=== PATIENT | female | born 1995 ===

== ENCOUNTER 2018-05-24 00:50 | Inpatient (IN) | payer OTHER ==
[2018-05-24] MEDS ORDERED: MAG HYDROX/AL HYDROX/SIMETH 30 ML UDCUP PO PRN (01:12)
[2018-05-24] MEDS ORDERED: MAGNESIUM HYDROXIDE 30 ML UDCUP PO PRN (01:12)
[2018-05-24] MEDS: OLANZapine 5 MG TAB PO PRN ×2 (04:21→14:39)
--- NOTE | 2018-05-24 09:24 | ASMTBHMTP ---
MYRNA Master Treatment Plan Master Treatment Plan Answers: Impaired Reality for: Date: 05/24/2018 Diagnosis on Admission: Psychosis Reason for admission: Notes: Patient admitted with disorganzed thought ah/vh and tactile hallucinations off psychiatric meds m1 hold Patient's stated presenting problems: Notes: Patient presents to staff as disorganized, responding to internal stimuli. Refused to discuss and sign treatment plan Identify supports outside of hospital: Notes: Patient has [facility] providers Discharge criteria: Notes: Patient will stabilize sx's and able to manage aspects of daily living without threat or harm to self, or grave disability Initial disposition plan/considerations: Notes: Will assist with d/c plan to community and f/u with [facility] care Master Treatment Plan Required Signatures Psychiatrist signature: Answers: Psychiatrist: RN on-shift signature: Answers: RN: Patient signature: Answers: Patient: Date Signed: 05/24/2018 09:23 AM Electronically Signed By:Annel Coreas
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
--- NOTE | 2018-05-24 15:13 | PDMN ---
Medical Necessity Medical necessity: Pt meets inpt criteria per MD order and [facility] B-011, Other Psychotic Disorders, Adult: Inpatient Care. 22 y/o admitted on M1 Hold w/ psychotic disorder, unspecified, manic w/psychosis w/atypical features requiring inpt psychiatric hospitalization.
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
[2018-05-24] MEDS: LORazepam 0.5 MG TAB PO PRN (17:01)
[2018-05-25] MEDS: OLANZapine 5 MG TAB PO PRN ×3 (13:33→21:23)
--- NOTE | 2018-05-25 14:53 | ASMTCMCOM ---
CM Note CM Note Notes: Pt. reports feeling "anxiety". Pt. stated she doesn't remember how she slept because she was sleeping. Pt. stated she doesn't feel groggy and believes she is getting enough sleep. Pt. stated she is unsure when she will discharge, but stated she will return to living with her mother in mother's house. Pt. denied SI, HI, AVH and paranoia. Pt. stated she "banged my leg to distract" when CC asked about self harm. Pt. stated "don't think so" when asked about any hallucinations, adding she "know what that's like". Pt. stated she is "pretty blind right now" adding she can't see with out her contacts/glasses. Pt. presents as alert, very guarded, covering her mouth with a washcloth because of "airborne pathogens", friendly, good eye contact, and giggling at times. Staff report pt. sleeping 11 hours, disrobing at times and needing to be redirected, disorganized, disoriented, and suspicious. Date Signed: 05/25/2018 02:52 PM Electronically Signed By:Irene Jason
--- NOTE | 2018-05-25 16:27 | SOAPPROG ---
SOAP Progress Note Assessment/Plan: Assessment: 22 yo w/ recurrent psychosis, has been diagnosed with Bipolar DO in past, but does not present with johny this time. She reports recurrence of psychotic sxs after using THC on . Plan: 05/25/18 16:23 1. Patient still very paranoid today. Took Zyprexa 10mg PRN this afternoon and seemed less fearful. 2. Dr. Parish's initial psych assessment mentions possibility that AMS might be d/t delirium. It's possible patient's psychotic sxs might resolve once THC has been metabolized. Will continue with PRN meds if necessary and monitor for sxs resolution. 3. [facility] Subjective: Patient presents as extremely paranoid. MD meets with patient with CC, Irene present. Patient is wearing a T-shirt, shorts and holding wash cloth over her mouth and nose. When CC asks why, patient says it's to protect her against "airborne pathogens." In dining room this AM, she didn't want any plastic forks or spoons to touch her tray. This afternoon, she took 10mg Zyprexa at MD's suggestion and appeared much calmer and less agitated after. Objective: Vital Signs Temp Pulse Resp BP Pulse Ox 37.4 C 83 14 114/63 97 05/25/18 14:00 05/25/18 14:00 05/25/18 14:00 05/25/18 14:00 05/25/18 14:00 MSE: Affect: Anxious, agitated Mood: "OK" TP: Disorganized, illogical TC: Denies SI/HI, very paranoid Insight/Judgment: Impaired - Time Spent With Patient Time Spent With Patient: 15" - Pending Discharge Pending Discharge Within 24 Hours: No Pending Discharge Within 48 Hours: No ICD10 Worksheet Patient Problems: Problems Problem Status Onset Cannabis use disorder, severe, dependence Acute Psychosis Acute - ICD10 Problem Qualifiers (1) Psychosis Qualifiers: Psychosis type: unspecified psychosis type Qualified Code(s): F29 - Unspecified psychosis not due to a substance or known physiological condition (2) Cannabis use disorder, severe, dependence
[2018-05-25] MEDS: LORazepam 0.5 MG TAB PO PRN (17:37)
--- NOTE | 2018-05-26 16:37 | SOAPPROG ---
SOAP Progress Note Assessment/Plan: Assessment: 22 yo w/ recurrent psychosis, has been diagnosed with Bipolar DO in past, but does not present with johny this time. She reports recurrence of psychotic sxs after using THC on . Plan: 05/25/18 16:23 1. Patient still very paranoid today. Took Zyprexa 10mg PRN this afternoon and seemed less fearful. 2. Dr. Parish's initial psych assessment mentions possibility that AMS might be d/t delirium. It's possible patient's psychotic sxs might resolve once THC has been metabolized. Will continue with PRN meds if necessary and monitor for sxs resolution. 3. [facility] 05/26/18 16:32 1. Patient slightly less paranoid today. Not wearing wash cloth over her mouth to protect from "pathogens." 2. Patient ate more today (> 75%). 3. Patient has little insight into her situation. She does not agree to stay in hospital voluntarily. Will place on ST. Subjective: Patient still has odd behavior and bizarre thoughts. She remains paranoid about contact with peers, "pathogens" on unit, and plastic forks and knives. She isolates in room most of the day. RN found patient crouching under her desk but could not explain why. She ate better today, and in afternoon, she stopped holding wash cloth over her nose/mouth. She seemed slightly less paranoid. Objective: Vital Signs Temp Pulse Resp BP Pulse Ox 37.1 C 88 16 123/74 H 97 05/26/18 13:00 05/26/18 13:00 05/26/18 13:00 05/26/18 13:00 05/26/18 13:00 MSE: Affect: Anxious Mood: "OK" TP: Disorganized, illogical TC: Denies any SI/HI, slightly less paranoid Insight/Judgment: Poor - Time Spent With Patient Time Spent With Patient: 15" - Pending Discharge Pending Discharge Within 24 Hours: No Pending Discharge Within 48 Hours: No ICD10 Worksheet Patient Problems: Problems Problem Status Onset Cannabis use disorder, severe, dependence Acute Psychosis Acute - ICD10 Problem Qualifiers (1) Psychosis Qualifiers: Psychosis type: unspecified psychosis type Qualified Code(s): F29 - Unspecified psychosis not due to a substance or known physiological condition (2) Cannabis use disorder, severe, dependence
[2018-05-26] MEDS: OLANZapine 5 MG TAB PO PRN (21:36)
--- NOTE | 2018-05-27 13:54 | SOAPPROG ---
SOAP Progress Note Assessment/Plan: Assessment: Plan: 05/27/18 13:54 Psychosis: Significant improvement over the weekend. Will schedule Zyprexa, monitor. Subjective: Pt seen, discussed with staff, chart reviewed. She reports feeling "much better " over the past two days. More organized, cooperative, less agitated. Compliant with meds. Notes no SE's. Seen in Treatment Team meeting. She states to team that she is thankful for being in the hospital "where I can get back to normal and be safe." Notes conflicts with her mother and responsibility to take care of her younger sibs. She refers to them as "my children." Unable to explain what might have happened on 05/22/18 when she suddenly decompensated. Objective: Vital Signs Temp Pulse Resp BP Pulse Ox 36.3 C 89 14 102/64 99 05/27/18 05:00 05/27/18 05:00 05/27/18 05:00 05/27/18 05:00 05/27/18 05:00 - Time Spent With Patient Time Spent With Patient: 25" ICD10 Worksheet Patient Problems: Problems Problem Status Onset Cannabis use disorder, severe, dependence Acute Psychosis Acute
--- NOTE | 2018-05-27 15:41 | ASMTCMCOM ---
CM Note CM Note Notes: Met with patient she presents as alert and cooperative, orientted to place and person. She has a anxious affect disorganized, confused appears with rapid eye blinking and stuttered odd responses when asked questions. Will continue to monitor and access family community supports Date Signed: 05/27/2018 03:36 PM Electronically Signed By:Annel Coreas
[2018-05-27] MEDS: OLANZapine DISINTEGR 5 MG TAB PO SCH (21:05)
[2018-05-27] MEDS: LORazepam 0.5 MG TAB PO PRN (22:30)
[2018-05-28] MEDS: LORazepam 0.5 MG TAB PO PRN (12:59)
[2018-05-28] MEDS: OLANZapine 5 MG TAB PO PRN (13:40)
--- NOTE | 2018-05-28 14:58 | SOAPPROG ---
SOAP Progress Note Assessment/Plan: Assessment: Unspecified psychosis. No improvement noted, disorganized, acute agitation. ( see subjective/objective note). Patient is not safe to discharge at this time as patient continues to exhibit signs of psychosis, and express psychosis symptoms. Patient requires continued inpatient care because of current psychosis, and requires inpatient level of care to stabilize in order to no longer be gravely disabled due to mental illness. Patient could benefit from continued inpatient hospitalization for crisis stabilization, safety, and medication evaluation. Plan: (1) Psychotropic medications: After reviewing options, risks, and benefits patient agrees to continue current medications. No medication changes at this time as more time is needed to determine ongoing tolerability and efficacy. Plan is to continue to observe patient for response and side effects from medications, and ongoing monitoring and evaluation. (2) Review with patient informed consent and recommendations for psychotropic medication treatment listed below (3) Labs: no additional labs at this time (4) Therapy: continue milieu and group therapy (5) Further investigation including gathering information from patients relatives and review of past case records to inform treatment plan. (6) Safety/Wellness plan and follow-up outpatient appointments to be established prior to discharge. Next steps are for patient to meet with career development manager to plan a safe discharge plan and establish outpatient services for ongoing treatment. (7) Confer with inpatient treatment team regarding treatment plan. (8) Legal status: [facility] (9) Consider discharge next week if patient is in stable condition, safe, and has a safe discharge plan. PSYCHOTROPIC MEDICATION TREATMENT INFORMED CONSENT and RECOMMENDATIONS: Review nature of condition, diagnosis, and prognosis. Review nature and purpose of psychotropic medication treatment. Review type of psychotropic medications being ordered. Review risk and benefits of psychotropic medication treatment. Review probable length of time patient will need to take medications. Review risk and benefits of not undergoing psychotropic medication treatment. Review alternative treatments to psychotropic medications. Review psychotropic medications contraindications, drug-drug interactions, side effects, and importance of reporting any side effects to a psychiatric provider or nurse during inpatient hospitalization, and upon discharge to patients psychiatric outpatient provider, primary care provider, or other health ocular care technician. Review importance of asking a nurse, psychiatric provider, or primary care provider any questions or problems concerning the psychotropic medications. Verify patient understands the information that has been provided, and understands, accepts, and agrees to psychotropic medications. Review patients safety plan and importance of patient to report to staff while hospitalized if patient is ever a danger to self/others, or unable to care for self, and upon discharge, the importance for patient to contact [facility] or [facility], or go to the nearest emergency room, if patient is ever a danger to self/others, or unable to care for self. Recommend that upon discharge patient establish medication management treatment with a psychiatric provider, establishes routine therapy appointments, and follow-up with primary care provider. Verify patient understands and agrees to these recommendations. 05/28/18 14:58 Subjective: Following up with patient for evaluation of psychosis, johny, and safety. Patient reports, "Doing okay until after art, then triggered by the paper and plastic, then I got triggered again. It's no one's fault, just get triggered by some women's vocal cords. I have an issue with my toe. My body is just way too warm so I have ice in my socks to help my body cool down, just way to warm. My body is warm because I had a flight or fight response then I decided to clean my floor. My body was just so so warm. Drinking ice, putting it on my two front teeth to help with everything." Patient expresses the following psychiatric symptoms severe anxiety, unable to organized and slow thoughts. Patient reports taking medications as prescribed, and describes response to medications as okay. Patient does not report undesirable side effects from the medications, and agrees to continue current medications. Patient reports appetite as good, and reports eating all meals. Patient describes getting 8 hours of sleep. Objective: Vital Signs Temp Pulse Resp BP Pulse Ox 36.5 C 100 15 128/69 H 95 05/28/18 06:33 05/28/18 06:33 05/28/18 06:33 05/28/18 06:33 05/28/18 06:33 NURSING REPORT: Consulted with nursing for update on patients progress in treatment. Nurses report patient is engaged in treatment, is attending groups, slept 8 hours, expresses the following psychiatric symptoms: severe anxiety, exhibits the following psychiatric symptoms: disorganized, tangential; is eating all meals, is agreeable to medications and taking as prescribed with no report of side effects, with no s/s of EPS/akathisia, and denies SI/HI, denies A /V hallucinations, and denies delusions. Patient required Ativan and Zyprexa Zydis PRN due to acute agitation earlier today. TAXATION AGENT UPDATE: setting up follow-up appointments at [facility] for patient to continue medication management and therapy after discharge. MSE: The patient is a well-nourished female looking stated chronological age. Attire is appropriate and dress. Grooming status is inappropriate and disheveled. Ambulation is independent. Gait is normal and coordinated. Posture is normal and relaxed. Eye contact is appropriate. Motor activity is appropriate with purposeful, organized, coordinated movements; with no involuntary movements. Attitude is cooperative. Patient appears distractible, anxious, and does not relate well to this interviewer. Language production is spontaneous. Rate is pressured. Articulation is clear. Patient reports mood as okay with incongruent and expansive affect. Patients thought process is disorganized, non-linear, illogical, with loose associations, tangential thought. Patient does not report suicidal/homicidal thoughts, ideas, or plans. Patient denies auditory, visual hallucinations. Patient denies delusions. Patient does not appear to be attending to internal stimuli. Patients attention and concentration are poor. Patient is oriented to person, place, time. Patients insight is poor. Patients judgment is poor. No evidence of gross cognitive dysfunction at any point during the interview. No evidence of apparent dysfunction in recent or remote memory. - Time Spent With Patient Time Spent With Patient: 15 minutes, met with patient individually. - Pending Discharge Pending Discharge Within 24 Hours: No Pending Discharge Within 48 Hours: No ICD10 Worksheet Patient Problems: Problems Problem Status Onset Psychosis Acute Cannabis use disorder, severe, dependence Acute
--- NOTE | 2018-05-28 15:14 | ASMTBHDC ---
Notes Note: Notes: CC confirmed client's out-patient follow up service: Follow up with: [facility] [address] [place] [id number] Next Appt: Client has a comprehensive assessment on SundayJune 04 (06/04/18) with Diana Sorensen from 9am to 11am. Date Signed: 05/28/2018 03:09 PM Electronically Signed By:Kobi Anne
[2018-05-28] MEDS: OLANZapine DISINTEGR 5 MG TAB PO SCH (19:43)
[2018-05-29] MEDS: LORazepam 0.5 MG TAB PO PRN ×2 (08:53→21:03)
[2018-05-29] MEDS: ACETAMINOPHEN 325 MG TAB PO PRN (09:10)
--- NOTE | 2018-05-29 12:14 | ASMTCMCOM ---
CM Note CM Note Notes: Met with pt for updated status . Pt is alert and cooperative she denies si/hi continues to have tactile difficulties of feeling hot and wears clothes in odd manner. She contiues to present as disorganized and paranoid per staff continues to eat in her room. Spent extended time reviewing past hx as pt requested, periodically teary particularly regarding issues where she felt abandoned adn then included. Pt provided permission to speak with her foster famliies COLE in chart for Ronal López. She mentioned another foster family Travis Dwyer whom she believes his number to be [phone] this CC tested the number and it is no longer in service. CC outreached to Mom collateral as signed COLE in chart and Mental Health Evaluation from [facility] as well as hold indicated collateral. Geraldine [phone] [facility]. Pt needs assitance with clotthing particularly a bra and have not been able to assist with family intervention . Outreached to emergency contact listed on the patient's chart for Ronal López [phone] and is wrong number. Date Signed: 05/29/2018 12:14 PM Electronically Signed By:Annel Coreas
--- NOTE | 2018-05-29 15:02 | SOAPPROG ---
SOAP Progress Note Assessment/Plan: Assessment: Plan: 05/27/18 13:54 Psychosis: Significant improvement over the weekend. Will schedule Zruben, monitor. 05/29/18 15:05 Psychosis: Overall improved, though remains disorganized. CCM. Subjective: Pt seen, discussed with staff. Engaging and cooperative, though remains quite disorganized. Unable to give goal-directed answers to questions. Unable to understand simple questions such as, "Is there anything you need today?" She states, "How would I know what you're thinking? What could I ask for? I don't know what the choices are?" After terminating the meeting, she returns several minutes later asking if I was her doctor and produces a list of five things she needs. Makes no reference to previous conversation. She continues to isolate in her room, though is eating and drinking adequately and is compliant with meds. Sleep adequate. Pt states she will return to live with her "biological mother" after d/c. She describes some odd interactions with her mother in which she (mother) will " call herself baby and need to be taken care of." She gives example of "baby" need to have her coffee made for her and put in a sippy cup or require one of the children to sleep with her and "snuggle baby." Objective: Vital Signs Temp Pulse Resp BP Pulse Ox 36.8 C 89 16 100/70 94 05/29/18 06:50 05/29/18 06:50 05/29/18 06:50 05/29/18 06:50 05/29/18 06:50 MSE: Adequately groomed, hair is neatly braided. Activity and speech are normal. Affect is constricted, approp. Mood is "really good." TP is linear at times, but also disorganized with frequent derailing. TC reveals odd statements, possible inappropriate associations. - Time Spent With Patient Time Spent With Patient: 25" ICD10 Worksheet Patient Problems: Problems Problem Status Onset Cannabis use disorder, severe, dependence Acute Psychosis Acute
[2018-05-29] MEDS: OLANZapine DISINTEGR 5 MG TAB PO SCH (19:16)
[2018-05-29] MEDS: NICOTINE POLACRILEX 2 MG GUM B PRN (19:16)
[2018-05-30] MEDS: NICOTINE POLACRILEX 2 MG GUM B PRN ×4 (05:49→16:03)
[2018-05-30] MEDS: OLANZapine 5 MG TAB PO PRN (06:26)
[2018-05-30] MEDS: ACETAMINOPHEN 325 MG TAB PO PRN (06:28)
[2018-05-30] MEDS: LORazepam 0.5 MG TAB PO PRN ×2 (07:58→17:18)
--- NOTE | 2018-05-30 11:24 | ASMTCMCOM ---
CM Note CM Note Notes: CC was able to contact [facility] (Danielle) at [phone]. [facility] suggested that client was off of her medications at the time of admission to [facility]. [facility] was thankful towards this radio news writer for reaching out, because "I didn't know who to call to find out how she was doing." MO was given additional resources including "[facility]," due to high cost of medications from past hospitalizations ([facility]). Also, MOC named off several of client's current medications including: Melatonin 3mg, Gabapentin and Diphenydramine. CC noted to MO that two of these medications were over the counter substances (Benadryl & and Melatonin Hormone). MOC was shocked and could not remember of cite any additional medications that client is currently taking. CC will try to out-reach [facility] for records. Moreover, MO noted that she would "love to come on the unit for a family meeting; however, she is only available this coming Sunday 06/03. CC confirmed family meeting with provider on Sunday 06/03 at 11:30am, etc. CC will let provider know. Furthermore, [facility] noted that she "would of course love to have her (client) return home." Date Signed: 05/30/2018 11:24 AM Electronically Signed By:Kobi Anne
[2018-05-30] MEDS: OLANZapine DISINTEGR 5 MG TAB PO SCH (20:50)
[2018-05-31] MEDS: LORazepam 0.5 MG TAB PO PRN ×2 (08:03→12:49)
[2018-05-31] MEDS: ACETAMINOPHEN 325 MG TAB PO PRN (08:07)
--- NOTE | 2018-05-31 08:38 | ASMTCMCOM ---
CM Note CM Note Notes: Met w/ pt observed she had 1/4 of her breakfast. Was writing succession of numbers in a pad, continued confusion, with some improved affect and linear thought. Pt states she is not "doing situtationally ok". Reviewed pt note, and contacted [facility] to see if this patient had been admitted under another name which they confirmed. Faxed new NAME ALERT Yudith Brantley release of records, Copy of COLE in the chart. Date Signed: 05/31/2018 08:37 AM Electronically Signed By:Annel Coreas
--- NOTE | 2018-05-31 11:17 | ASMTBHDC ---
Notes Note: Notes: Pt family meeting scheduled for Sunday. CC returned call to PT attorney at law Clarita Hoang [phone] Date Signed: 05/31/2018 11:16 AM Electronically Signed By:Annel Coreas
--- NOTE | 2018-05-31 12:08 | SOAPPROG ---
SOAP Progress Note Assessment/Plan: Assessment: Plan: 05/27/18 13:54 Psychosis: Significant improvement over the weekend. Will schedule Britni, monitor. 05/29/18 15:05 Psychosis: Overall improved, though remains disorganized. CCM. 05/31/18 12:07 Psychosis: Continued gradual improvement. CCM. Subjective: Pt seen, discussed with staff. Continues to improve with more organized thoughts, decreased psychosis. She recognizes this, stating, "I'm just glad that psychosis is going away." Compliant with meds. Offers no c/o's. Objective: Vital Signs Temp Pulse Resp BP Pulse Ox 36.8 C 84 16 94/64 L 98 05/31/18 06:00 05/31/18 06:00 05/31/18 06:00 05/31/18 06:00 05/31/18 06:00 MSE: Calm, interactive. Affect is bright, smiling, approp. Mood is "good." TP is linear, but with continued derailment. TC reveals continued odd and paranoid thoughts. No AH's. Denies SI/HI/. - Time Spent With Patient Time Spent With Patient: 25" ICD10 Worksheet Patient Problems: Problems Problem Status Onset Cannabis use disorder, severe, dependence Acute Psychosis Acute
--- NOTE | 2018-05-31 12:10 | SOAPPROG ---
SOBRIAN Progress Note Assessment/Plan: Assessment: Plan: 05/27/18 13:54 Psychosis: Significant improvement over the weekend. Will schedule Britni, monitor. 05/29/18 15:05 Psychosis: Overall improved, though remains disorganized. CCM. 05/31/18 12:07 Psychosis: Continued gradual improvement. CCM. 05/31/18 12:10 Psychosis: Doing much better. CCM. Subjective: Pt seen, discussed with staff. Reports feeling "a lot better." Able to interact well with myself and resident. She continues to demonstrate very good insight into illness and need for treatment. SHe states, "I know I have psychosis. This medication helps with that. I want to stay here until my symptoms are gone and I can function normally." Compliant with meds. No SE's. No c/o's. Objective: Vital Signs Temp Pulse Resp BP Pulse Ox 36.8 C 84 16 94/64 L 98 05/31/18 06:00 05/31/18 06:00 05/31/18 06:00 05/31/18 06:00 05/31/18 06:00 - Time Spent With Patient Time Spent With Patient: 25" ICD10 Worksheet Patient Problems: Problems Problem Status Onset Cannabis use disorder, severe, dependence Acute Psychosis Acute
--- NOTE | 2018-05-31 19:15 | HOSPPROG ---
Hospitalist Progress Note Assessment/Plan: vaginal discharge check ua/CIID, urine gc/ct. If neg, will tx empirically for BV (prefers tabs) . Suggest pap/pelvic exam as an outpt. Neg test. If sxs persisting, would need pelvic exam. Subjective: Asked to see her because of concern re vaginal discharge. Has had yellow discharge for about 3 days. Says has had it before, not seen about it. Denies itching. Denies pain with urination or abdominal pain. Objective: Vital Signs Temp Pulse Resp BP Pulse Ox 98.2 F 84 16 94/64 L 98 05/31/18 06:00 05/31/18 06:00 05/31/18 06:00 05/31/18 06:00 05/31/18 06:00 - Physical Exam Constitutional: no apparent distress (exam deferred/unable in unit) ICD10 Worksheet Patient Problems: Problems Problem Status Onset Cannabis use disorder, severe, dependence Acute Psychosis Acute
[2018-05-31] MEDS: OLANZapine DISINTEGR 5 MG TAB PO SCH (20:26)
[2018-06-01] MEDS: ACETAMINOPHEN 325 MG TAB PO PRN (07:38)
[2018-06-01] MEDS: LORazepam 0.5 MG TAB PO PRN ×2 (07:39→21:38)
[2018-06-01] MEDS: OLANZapine 5 MG TAB PO PRN (11:13)
--- NOTE | 2018-06-01 15:11 | ASMTCMCOM ---
CM Note CM Note Notes: Pt. reports feeling "alright". Pt. stated she "slept good" and is eating well but would like more for breakfast. Pt. stated no issues with the medications, other than "hallucinations are just the same". PT. reports "lot less often" having AH. Pt. stated her VH include "water along the truong", "circles around outlets", "rainbows almost everywhere". Pt. stated the medication is "making me feel more courageous". Pt. stated she is still concerned about airborne pathogens but stated her face was breaking out when wearing the wash cloth. Pt. denied SI and HI. Pt. stated she has "a little" paranoia when she couldn't find her journal while on the unit. Pt. stated CC was able to get a hold of her mom and there is a family meeting scheduled for Sunday at 11am. Staff report pt. sleeping 9 hours and being medication compliant. Date Signed: 06/01/2018 03:10 PM Electronically Signed By:Irene Jason
--- NOTE | 2018-06-01 17:20 | SOAPPROG ---
SOAP Progress Note Assessment/Plan: Assessment: 22 yo w/ recurrent psychosis, has been diagnosed with Bipolar DO in past, but does not present with johny this time. She reports recurrence of psychotic sxs after using THC on Halloween. Per Dr. Parish's notes: 05/27/18 13:54 Psychosis: Significant improvement over the weekend. Will schedule Zyprexa, monitor. 05/29/18 15:05 Psychosis: Overall improved, though remains disorganized. CCM. 05/31/18 12:07 Psychosis: Continued gradual improvement. CCM. 05/31/18 12:10 Psychosis: Doing much better. CCM. Subjective: Pt seen, discussed with staff. Reports feeling "a lot better." Able to interact well with myself and resident. She continues to demonstrate very good insight into illness and need for treatment. SHe states, "I know I have psychosis. This medication helps with that. I want to stay here until my symptoms are gone and I can function normally." Compliant with meds. No SE's. No c/o's. Current Plan: 06/01/18: 1. Patient continues to take meds and report improvement in psychotic sxs. 2. Hospitalist ordered UA with C&S today, suspects BV d/t c/o vag d/c x 3 days. 3. CCM Subjective: Patient reports psychotic sxs are "much better." She is bothered by AH "less often." She still reports feeling "triggered" by peers. She seems more agitated and anxious in certain social situations. It's not clear whether this is d/t psychosis or if she misperceives social cues d/t other factors. Objective: Vital Signs Temp Pulse Resp BP Pulse Ox 36.7 C 76 14 102/65 97 06/01/18 06:00 06/01/18 06:00 06/01/18 06:00 06/01/18 06:00 06/01/18 06:00 MSE: Affect: Anxious Mood: "Better" TP: More coherent and linear, but disorganized at times TC: Denies any SI/HI Insight/Judgment: Improving - Time Spent With Patient Time Spent With Patient: 15" - Pending Discharge Pending Discharge Within 24 Hours: No Pending Discharge Within 48 Hours: No ICD10 Worksheet Patient Problems: Problems Problem Status Onset Cannabis use disorder, severe, dependence Acute Psychosis Acute - ICD10 Problem Qualifiers (1) Psychosis Qualifiers: Psychosis type: unspecified psychosis type Qualified Code(s): F29 - Unspecified psychosis not due to a substance or known physiological condition (2) Cannabis use disorder, severe, dependence
[2018-06-01] MEDS: OLANZapine DISINTEGR 5 MG TAB PO SCH (20:52)
[2018-06-02] MEDS: LORazepam 0.5 MG TAB PO PRN ×3 (08:19→23:09)
[2018-06-02] MEDS: NICOTINE POLACRILEX 2 MG GUM B PRN ×2 (10:38→18:02)
--- NOTE | 2018-06-02 17:26 | SOAPPROG ---
SOAP Progress Note Assessment/Plan: Assessment: 22 yo w/ recurrent psychosis, has been diagnosed with Bipolar DO in past, but does not present with johny this time. She reports recurrence of psychotic sxs after using THC on Halloween. Per Dr. Parish's notes: 05/27/18 13:54 Psychosis: Significant improvement over the weekend. Will schedule Zyprexa, monitor. 05/29/18 15:05 Psychosis: Overall improved, though remains disorganized. CCM. 05/31/18 12:07 Psychosis: Continued gradual improvement. CCM. 05/31/18 12:10 Psychosis: Doing much better. CCM. Subjective: Pt seen, discussed with staff. Reports feeling "a lot better." Able to interact well with myself and resident. She continues to demonstrate very good insight into illness and need for treatment. SHe states, "I know I have psychosis. This medication helps with that. I want to stay here until my symptoms are gone and I can function normally." Compliant with meds. No SE's. No c/o's. Current Plan: 06/01/18: 1. Patient continues to take meds and report improvement in psychotic sxs. 2. Hospitalist ordered UA with C&S today, suspects BV d/t c/o vag d/c x 3 days. 3. CCM 06/02/18 17:22 1. Positive urine culture. Hospitalist to treat. 2. GC/Chlamydia pending 3. Less psychotic, more organized. 4. CCM Subjective: Patient is sitting at table wearing street clothes, has towel wrapped around head even though her hair isn't wet. She has brighter affect, seems much less guarded and fearful than last time MD saw her. She would like to be able to shave, but is still on SP1. Patient denies any thoughts, plan or intent to hurt herself. After our conversation, noticed patient was walking in hallway. She had taken towel off her head and was wearing it over her shoulders. She was holding it across her mouth, which reminded MD of our first interview when patient held wash cloth over her mouth b/c she was worried about "airborne pathogens." Objective: Vital Signs Temp Pulse Resp BP Pulse Ox 36.9 C 88 14 110/70 99 06/02/18 06:00 06/02/18 06:00 06/02/18 06:00 06/02/18 06:00 06/02/18 06:00 MSE: Affect: Pleasant Mood: "OK" TP: More coherent and linear TC: Denies any SI/HI Insight/Judgment: Improving slowly - Time Spent With Patient Time Spent With Patient: 15" - Pending Discharge Pending Discharge Within 24 Hours: No Pending Discharge Within 48 Hours: No ICD10 Worksheet Patient Problems: Problems Problem Status Onset Cannabis use disorder, severe, dependence Acute Psychosis Acute - ICD10 Problem Qualifiers (1) Psychosis Qualifiers: Psychosis type: unspecified psychosis type Qualified Code(s): F29 - Unspecified psychosis not due to a substance or known physiological condition (2) Cannabis use disorder, severe, dependence
[2018-06-02] MEDS: OLANZapine DISINTEGR 5 MG TAB PO SCH (21:02)
[2018-06-03] MEDS: LORazepam 0.5 MG TAB PO PRN ×3 (08:03→16:28)
[2018-06-03] MEDS: NICOTINE POLACRILEX 2 MG GUM B PRN ×4 (10:34→16:24)
[2018-06-03 12:20] LABS: GC AMPLIFICATION GENPROBE NEGATIVE (NEGATIVE)
--- NOTE | 2018-06-03 16:29 | SOAPPROG ---
SOAP Progress Note Assessment/Plan: Assessment: Plan: 05/27/18 13:54 Psychosis: Significant improvement over the weekend. Will schedule Britni, monitor. 05/29/18 15:05 Psychosis: Overall improved, though remains disorganized. CCM. 05/31/18 12:07 Psychosis: Continued gradual improvement. CCM. 05/31/18 12:10 Psychosis: Doing much better. CCM. 06/03/18 16:29 Psychosis: Continued gradual improvement. CCM. Subjective: Pt seen, discussed with staff, chart reviewed. She continues to improve, though still struggles with disorganized thoughts. CC met with pt and her mother today to discuss discharge. I was unable to attend. Pt is upbeat afterward, asking again to shave. States she remains grateful to be in the hospital "where I am safe." Remains compliant with meds. Objective: Vital Signs Temp Pulse Resp BP Pulse Ox 36.8 C 80 16 100/71 90 L 06/03/18 06:00 06/03/18 06:00 06/03/18 06:00 06/03/18 06:00 06/03/18 06:00 MSE: CAlm, coop. Affect is euthymic, to slightly elevated, smiling. Mood is "good." TP is generally linear, though derails at times. TC reveals mild persistent paranoia. Denies current AH's. Denies SI. - Time Spent With Patient Time Spent With Patient: 15" ICD10 Worksheet Patient Problems: Problems Problem Status Onset Cannabis use disorder, severe, dependence Acute Psychosis Acute
[2018-06-03] MEDS: OLANZapine DISINTEGR 5 MG TAB PO SCH (20:09)
[2018-06-04] MEDS: LORazepam 0.5 MG TAB PO PRN ×2 (08:56→13:53)
[2018-06-04] MEDS: NICOTINE POLACRILEX 2 MG GUM B PRN ×2 (08:56→13:55)
--- NOTE | 2018-06-04 14:34 | SOAPPROG ---
SOAP Progress Note Assessment/Plan: Assessment: Plan: 05/27/18 13:54 Psychosis: Significant improvement over the weekend. Will schedule nadir Ryder. 05/29/18 15:05 Psychosis: Overall improved, though remains disorganized. CCM. 05/31/18 12:07 Psychosis: Continued gradual improvement. CCM. 05/31/18 12:10 Psychosis: Doing much better. CCM. 06/03/18 16:29 Psychosis: Continued gradual improvement. [facility]. 06/04/18 14:35 Psychosis: Continued improvement. [facility]. Family meeting tomorrow with d/c by end of week. Subjective: Pt seen, discussed with staff. Reports feeling "fine." Family meeting not held with pt's mother yesterday after she failed to show up. CC called her today and she stated that she couldn't come because she has a broken arm and it takes four hours to get here from [place]. She agrees to a family meeting by phone tomorrow morning. Pt continues to take medications as prescribed. Friendly and interactive with staff and fellow patients. Internal focus remains evident, but interfering less with functioning. Objective: Vital Signs Temp Pulse Resp BP Pulse Ox 36.6 C 80 16 116/64 98 06/04/18 06:00 06/04/18 06:00 06/04/18 06:00 06/04/18 06:00 06/04/18 06:00 Microbiology 05/31/18 21:53 Urine Culture - Final Urine,Clean Catch Five Or More [place] Types MSE: Well-groomed, coop. Affect is euthymic, smiling. Mood is "good." TP is linear for longer periods, though continues to derail. TC reveals continued paranoid and odd/bizarre thoughts. Denies SI/HI/. - Time Spent With Patient Time Spent With Patient: 15" ICD10 Worksheet Patient Problems: Problems Problem Status Onset Cannabis use disorder, severe, dependence Acute Psychosis Acute
[2018-06-04] MEDS: OLANZapine DISINTEGR 5 MG TAB PO SCH (20:18)
[2018-06-05] MEDS: LORazepam 0.5 MG TAB PO PRN ×2 (06:49→12:51)
[2018-06-05] MEDS: NICOTINE POLACRILEX 2 MG GUM B PRN ×2 (09:44→12:52)
--- NOTE | 2018-06-05 14:49 | ASMTCMCOM ---
CM Note CM Note Notes: CC was able to facilitate conversation between client and MOC. MOC donated the conversation, suggesting incorporating other treatments for her "anxiety," to include CBD oil, etc. CC noted, that would not help and client should remain ONLY on the medication prescribed by the doctor, etc. Provided GoodRx information as additional resources. MOC suggest, "I am really happy that she is coming home, I can't wait to see her." Also, MOC noted, that she "can supervisor opening and picking client from [facility] on Sunday06/07/18 at 1pm CC ran this idea by provider, who was ok with the idea. Moreover, CC is trying to get client's [facility] intake rescheduled soon due to client discharging on Sunday as well as observing client's willingness to receive help, etc. Waiting to hear back from [facility] at this time. CC will follow up again to have everything finalized. Date Signed: 06/05/2018 02:48 PM Electronically Signed By:Kobi Anne
[2018-06-05] MEDS: OLANZapine DISINTEGR 5 MG TAB PO SCH (20:16)
[2018-06-06] MEDS: LORazepam 0.5 MG TAB PO PRN ×2 (07:04→11:24)
[2018-06-06] MEDS ORDERED: NICOTINE 14 MG/24 HR PATCH TD SCH (09:45)
--- NOTE | 2018-06-06 16:06 | SOAPPROG ---
SOAP Progress Note Assessment/Plan: Assessment: Plan: 05/27/18 13:54 Psychosis: Significant improvement over the weekend. Will schedule Britni, monitor. 05/29/18 15:05 Psychosis: Overall improved, though remains disorganized. [facility]. 05/31/18 12:07 Psychosis: Continued gradual improvement. CCM. 05/31/18 12:10 Psychosis: Doing much better. [facility]. 06/03/18 16:29 Psychosis: Continued gradual improvement. [facility]. 06/04/18 14:35 Psychosis: Continued improvement. [facility]. Family meeting tomorrow with d/c by end of week. 06/06/18 16:05 Psychosis: Much improved overall. Will [facility], finalize d/c plan. Subjective: LATE ENTRY FOR 06/05/18 Pt seen, discussed with staff, interviewed in Treatment Team meeting. She continues to improve with more stable mood, more linear thoughts. Sleeping well. Compliant with meds. Continues to voice desire to "get stable before I go home." States it is her younger twin siblings' birthday today and that she is sad for missing it. Objective: Vital Signs Temp Pulse Resp BP Pulse Ox 36.6 C 92 16 122/57 H 96 06/06/18 06:00 06/06/18 06:00 06/06/18 06:00 06/06/18 06:00 06/06/18 06:00 MSE: Calm, coop. Affect is bright, smiling, approp. Mood is "good." TP is generally linear. TC reveals no mention of paranoid thoughts or AH's. No SI/HI /. - Time Spent With Patient Time Spent With Patient: 25" ICD10 Worksheet Patient Problems: Problems Problem Status Onset Cannabis use disorder, severe, dependence Acute Psychosis Acute
--- NOTE | 2018-06-06 16:16 | SOAPPROG ---
SOBRIAN Progress Note Assessment/Plan: Assessment: Plan: 05/27/18 13:54 Psychosis: Significant improvement over the weekend. Will schedule Britni, monitor. 05/29/18 15:05 Psychosis: Overall improved, though remains disorganized. CCM. 05/31/18 12:07 Psychosis: Continued gradual improvement. CCM. 05/31/18 12:10 Psychosis: Doing much better. CCM. 06/03/18 16:29 Psychosis: Continued gradual improvement. CCM. 06/04/18 14:35 Psychosis: Continued improvement. CCM. Family meeting tomorrow with d/c by end of week. 06/06/18 16:05 Psychosis: Much improved overall. Will [facility], finalize d/c plan. 06/06/18 16:16 Psychosis: Continued improvement. CCM. Likely d/c tomorrow if all is well. Will defer abx for vaginitis for now until pt completes her menses. Dr. Mackey recommends she f/u outpatient for this. Subjective: Pt seen, discussed with staff. Reports feeling "good." Discussed w/u for vaginitis. Requests shaving again. CC able to arrange family meeting with mother tomorrow. Pt remains cooperative, interactive, approp. States she is "ready to go home." This is the first time she has felt that way. Reviewed test results showing no STI's. She states she started her period today. Objective: Vital Signs Temp Pulse Resp BP Pulse Ox 36.6 C 92 16 122/57 H 96 06/06/18 06:00 06/06/18 06:00 06/06/18 06:00 06/06/18 06:00 06/06/18 06:00 MSE: Calm, coop. Affect is bright, smiling. Mood is "good." TP is linear. TC reveals no psychosis today. Denies SI/HI/. - Time Spent With Patient Time Spent With Patient: 25" ICD10 Worksheet Patient Problems: Problems Problem Status Onset Cannabis use disorder, severe, dependence Acute Psychosis Acute
[2018-06-06] MEDS: OLANZapine DISINTEGR 5 MG TAB PO SCH (20:28)
[2018-06-07 06:47] VITALS: BP 118/63
[2018-06-07] MEDS: LORazepam 0.5 MG TAB PO PRN (07:44)
[2018-06-07] MEDS ORDERED: NICOTINE 21 MG/24 HR PATCH TD SCH (09:00)
[2018-06-07] MEDS: ACETAMINOPHEN 325 MG TAB PO PRN (10:19)
== END 2018-06-07 14:05 | disposition home or self-care (01) | DRG 885 ==
LOC: BBEH 00:50
PROVIDERS: ADMIT Psychiatry & Neurology Behavioral Neurology & Neuropsychiatry; ATTEND Psychiatry & Neurology Behavioral Neurology & Neuropsychiatry
DX: F31.9 Bipolar disorder, unspecified (principal); E86.0 Dehydration; F12.959 Cannabis use, unspecified with psychotic disorder, unspecified; F43.10 Post-traumatic stress disorder, unspecified; T43.506A Underdosing of unspecified antipsychotics and neuroleptics, initial encounter